=== PATIENT | male | born 1945 | race Caucasian/White ===

== ENCOUNTER → 2020-01-01 18:09 | Outpatient (CLI) | payer MEDICARE, SELFPAY ==
[2020-01-01 18:34] LABS: Basophils % 0.7 % (0.1-2.0); Eosinophils # 0.1 K/mm3 (0.0-0.4); Eosinophils % 1.9 % (0.1-12.0); Lymphocytes # 1.6 K/mm3 (0.7-4.5); Lymphocytes % 26.8 % (10-50); Mean Corpuscular HGB Conc 32.1 g/dL (31.8-35.4); Mean Corpuscular Hemoglobin 29.7 pg (27.0-31.2); Mean Corpuscular Volume 92.5 fl (80-94); Monocytes # 0.4 K/mm3 (0.1-1.0); Monocytes % 6.9 % (1.7-9.3); Neutrophils # 3.7 K/mm3 (1.8-7.8); Neutrophils % 63.7 % (37.0-80.0); Platelet Count 213 K/mm3 (142-424); Red Blood Count 5.73 M/mm3 (4.60-6.20); Red Cell Distribution Width 13.7 % (11.5-17.5); White Blood Count 5.9 K/mm3 (4.8-10.8)
[2020-01-01 18:57] LABS: Alanine Aminotransferase 40 U/L (12-78); Albumin Level 4.5 g/dl (3.5-5.0); Albumin/Globulin Ratio 1.6 (1.1-1.8); Alkaline Phosphatase 55 U/L (38-126); Anion Gap 13.1 mEq/L (5-15); Aspartate Amino Transferase 30 U/L (17-59); Bilirubin,Total 0.7 mg/dl (0.2-1.3); Blood Urea Nitrogen 22 mg/dl (9-20); Calcium 9.6 mg/dl (8.4-10.2); Carbon Dioxide 27 mmol/L (22.0-30.0); Chloride 104 mmol/L (98-107); Chol/HDL Ratio 2.7 (1-3.5); Cholesterol 208 mg/dl (140-200); Estimated Glomerular Filt Rate 73 ml/min (>60); GFR (African American) 89 ML/MIN (>60); Globulin 2.8 g/dL (1.3-3.2); Glucose 102 mg/dl (74-100); HDL Cholesterol 77 mg/dl (40-60); Potassium 5.1 mmoL/L (3.5-5.1); Sodium 139 mmol/L (136-145); Total Protein,Serum 7.3 g/dl (6.3-8.2); Triglycerides 93 mg/dl (30-150); VLDL Cholesterol 19 mg/dL (0-40)
[2020-01-01 19:28] LABS: Prostate Specific Ag Screen 1.2 ng/ml (0.0-4.0)
== END ==
PROVIDERS: Visit Provider Family Medicine
DX: R21 Rash and other nonspecific skin eruption (principal); I10 Essential (primary) hypertension; Z12.5 Encounter for screening for malignant neoplasm of prostate
CPT/HCPCS: 80053; 80061; 85025; G0103

== ENCOUNTER → 2021-12-22 08:45 | Outpatient (CLI) | payer MEDICARE, SELFPAY ==
[2021-12-22 14:53] LABS: Alanine Aminotransferase 39 U/L (12-78); Albumin Level 4.7 g/dl (3.5-5.0); Albumin/Globulin Ratio 1.7 (1.1-1.8); Alkaline Phosphatase 85 U/L (38-126); Anion Gap 16.2 mEq/L (5-15); Aspartate Amino Transferase 35 U/L (17-59); Bilirubin,Total 0.7 mg/dl (0.2-1.3); Blood Urea Nitrogen 28 mg/dl (9-20); Calcium 9.9 mg/dl (8.4-10.2); Carbon Dioxide 25 mmol/L (22.0-30.0); Chloride 102 mmol/L (98-107); Chol/HDL Ratio 2.6 (1-3.5); Cholesterol 187 mg/dl (140-200); Estimated Glomerular Filt Rate 65 ml/min (>60); GFR (African American) 79 ML/MIN (>60); Globulin 2.7 g/dL (1.3-3.2); Glucose 97 mg/dl (74-100); HDL Cholesterol 72 mg/dl (40-60); Potassium 4.2 mmoL/L (3.5-5.1); Sodium 139 mmol/L (136-145); Total Protein,Serum 7.4 g/dl (6.3-8.2); Triglycerides 109 mg/dl (30-150); VLDL Cholesterol 22 mg/dL (0-40)
[2021-12-22 14:54] LABS: Basophils # 0.1 K/mm3 (0-0.2); Basophils % 1.2 % (0.1-2.0); Eosinophils # 0.2 K/mm3 (0.0-0.4); Eosinophils % 3.6 % (0.1-12.0); Hematocrit 48.8 % (42.0-52.0); Hemoglobin 15.5 g/dL (14.1-18.0); Lymphocytes # 1.5 K/mm3 (0.7-4.5); Lymphocytes % 23.8 % (10-50); Mean Corpuscular HGB Conc 31.8 g/dL (31.8-35.4); Mean Corpuscular Hemoglobin 29.2 pg (27.0-31.2); Mean Corpuscular Volume 91.7 fl (80-94); Mean Platelet Volume 9.6 fl (7.4-10.4); Monocytes # 0.5 K/mm3 (0.1-1.0); Monocytes % 8.3 % (1.7-9.3); Platelet Count 270 K/mm3 (142-424); Red Blood Count 5.32 M/mm3 (4.60-6.20); Red Cell Distribution Width 13.3 % (11.5-17.5); White Blood Count 6.3 K/mm3 (4.8-10.8)
[2021-12-22 15:04] LABS: Direct LDL Cholesterol 82.95 mg/dL (100-129)
[2021-12-22 15:24] LABS: Prostate Specific Ag Screen 2.4 ng/ml (0.0-4.0); Thyroid Stimulating Hormone 1.59 uIU/mL (0.465-4.68)
== END ==
PROVIDERS: PCP Family Medicine; Visit Provider Family Medicine
DX: N40.0 Benign prostatic hyperplasia without lower urinary tract symptoms (principal); R59.9 Enlarged lymph nodes, unspecified; Z12.5 Encounter for screening for malignant neoplasm of prostate; E05.90 Thyrotoxicosis, unspecified without thyrotoxic crisis or storm; Z00.00 Encounter for general adult medical examination without abnormal findings
CPT/HCPCS: 80053; 80061; 84443; 85025; G0103

== ENCOUNTER → 2022-01-16 10:16 | Outpatient (CLI) | payer MEDICARE, SELFPAY ==
--- NOTE | 2022-01-16 10:16 | US_ITS ---
FINAL REPORT CLINICAL HISTORY: enlarged lymph node FINDINGS: NECK SOFT TISSUE ULTRASOUND The sonographic images were obtained of the soft tissues of the neck bilaterally. There is a 1.4 cm cystic mass in the left parotid. There is a 7 mm hypoechoic nodule in the right submandibular gland it has a nonspecific appearance. The left submandibular gland and right parotid gland have an unremarkable appearance. IMPRESSION: 14 mm cyst versus cystic mass in the left parotid gland. Nonspecific 7 mm hypoechoic nodule in the right submandibular gland. Follow-up ultrasound may be helpful. Reviewed, Interpreted and Dictated by Ghassan Grullon III, MD Transcribed by Lauro Victoria Authenticated and [facility]
== END ==
PROVIDERS: PCP Family Medicine; Visit Provider Student in an Organized Health Care Education/Training Program
DX: R59.0 Localized enlarged lymph nodes (principal)
CPT/HCPCS: 76536

== ENCOUNTER → 2022-01-18 07:44 | Outpatient (CLI) | payer MEDICARE, SELFPAY ==
--- NOTE | 2022-01-18 07:44 | US_ITS ---
FINAL REPORT CLINICAL HISTORY: Left parotid mass FINDINGS: Technique: Limited sonographic assessment confirms the presence of a 14 mm complex cystic lesion of left parotid gland. Standard written informed consent was obtained. The area of interest was prepped in a routine sterile fashion and locally anesthetized with 1% lidocaine. 2 passes with a 25-gauge needle were made toward the thickened wall of the cystic lesion. This was submitted for cytologic evaluation. Approximately 2 mL's of purulent material was then aspirated. Aspirate was submitted for culture and sensitivity. IMPRESSION: 1. Technically successful FNA and aspiration of left parotid lesion 2. Abscess is suspected. Please see cultures and sensitivity. Authenticated and ERN
== END ==
PROVIDERS: PCP Family Medicine; Visit Provider Student in an Organized Health Care Education/Training Program
DX: R59.0 Localized enlarged lymph nodes (principal); K11.8 Other diseases of salivary glands
CPT/HCPCS: 10005; 76536; 87070; 87205; 88173

== ENCOUNTER → 2022-09-04 23:59 | Outpatient (CLI) | payer MEDICARE, SELFPAY ==
[2022-09-04 18:43] LABS: Basophils # 0.1 K/mm3 (0-0.2); Basophils % 0.9 % (0.1-2.0); Eosinophils # 0.1 K/mm3 (0.0-0.4); Eosinophils % 2.3 % (0.1-12.0); Hematocrit 49.6 % (42.0-52.0); Hemoglobin 15.6 g/dL (14.1-18.0); Lymphocytes % 19.7 % (10-50); Mean Corpuscular HGB Conc 31.5 g/dL (31.8-35.4); Mean Corpuscular Hemoglobin 28.4 pg (27.0-31.2); Mean Corpuscular Volume 90.3 fl (80-94); Mean Platelet Volume 10.2 fl (7.4-10.4); Monocytes # 0.4 K/mm3 (0.1-1.0); Monocytes % 7.5 % (1.7-9.3); Neutrophils # 3.6 K/mm3 (1.8-7.8); Neutrophils % 69.6 % (37.0-80.0); Platelet Count 208 K/mm3 (142-424); Red Blood Count 5.49 M/mm3 (4.60-6.20); Red Cell Distribution Width 13.7 % (11.5-17.5); White Blood Count 5.2 K/mm3 (4.8-10.8)
[2022-09-04 18:44] LABS: Alanine Aminotransferase 30 U/L (12-78); Albumin Level 4.7 g/dl (3.5-5.0); Albumin/Globulin Ratio 1.9 (1.1-1.8); Alkaline Phosphatase 63 U/L (38-126); Anion Gap 10.2 mEq/L (5-15); Aspartate Amino Transferase 28 U/L (17-59); Bilirubin,Total 0.6 mg/dl (0.2-1.3); Blood Urea Nitrogen 21 mg/dl (9-20); Calcium 9.5 mg/dl (8.4-10.2); Carbon Dioxide 24 mmol/L (22.0-30.0); Chloride 109 mmol/L (98-107); Chol/HDL Ratio 2.3 (1-3.5); Cholesterol 178 mg/dl (140-200); Estimated Glomerular Filt Rate 73 ml/min (>60); GFR (African American) 88 ML/MIN (>60); Globulin 2.5 g/dL (1.3-3.2); Glucose 101 mg/dl (74-100); HDL Cholesterol 77 mg/dl (40-60); Potassium 4.2 mmoL/L (3.5-5.1); Sodium 139 mmol/L (136-145); Total Protein,Serum 7.2 g/dl (6.3-8.2); Triglycerides 64 mg/dl (30-150); VLDL Cholesterol 13 mg/dL (0-40)
[2022-09-04 18:55] LABS: Direct LDL Cholesterol 81.99 mg/dL (100-129)
[2022-09-04 19:18] LABS: Thyroid Stimulating Hormone 1.13 uIU/mL (0.465-4.68)
== END ==
PROVIDERS: PCP Family Medicine; Visit Provider Family Medicine
DX: Z01.818 Encounter for other preprocedural examination (principal); E78.5 Hyperlipidemia, unspecified; E07.9 Disorder of thyroid, unspecified
CPT/HCPCS: 80053; 80061; 84443; 85025

== ENCOUNTER 2023-11-12 10:22 | Outpatient (CLI) | payer MEDICARE, SELFPAY ==
[2023-11-12 19:47] LABS: Basophils # 0.1 K/mm3 (0-0.2); Basophils % 0.8 % (0.1-2.0); Eosinophils % 0.5 % (0.1-12.0); Hematocrit 51.9 % (42.0-52.0); Lymphocytes # 1.1 K/mm3 (0.7-4.5); Lymphocytes % 15.3 % (10-50); Mean Corpuscular HGB Conc 32.6 g/dL (31.8-35.4); Mean Corpuscular Hemoglobin 31.2 pg (27.0-31.2); Mean Corpuscular Volume 95.5 fl (80-94); Mean Platelet Volume 9.5 fl (7.4-10.4); Monocytes # 0.5 K/mm3 (0.1-1.0); Monocytes % 6.4 % (1.7-9.3); Neutrophils # 5.7 K/mm3 (1.8-7.8); Neutrophils % 77.1 % (37.0-80.0); Platelet Count 227 K/mm3 (142-424); Red Blood Count 5.44 M/mm3 (4.60-6.20); Red Cell Distribution Width 13.6 % (11.5-17.5); White Blood Count 7.4 K/mm3 (4.8-10.8)
[2023-11-12 20:11] LABS: Alanine Aminotransferase 32 U/L (12-78); Albumin Level 4.7 g/dl (3.5-5.0); Albumin/Globulin Ratio 1.7 (1.1-1.8); Alkaline Phosphatase 57 U/L (38-126); Anion Gap 7.9 mEq/L (5-15); Aspartate Amino Transferase 30 U/L (17-59); Blood Urea Nitrogen 22 mg/dl (9-20); Calcium 9.9 mg/dl (8.4-10.2); Carbon Dioxide 27 mmol/L (22.0-30.0); Chloride 106 mmol/L (98-107); Chol/HDL Ratio 3.1 (1-3.5); Cholesterol 200 mg/dl (140-200); Estimated Glomerular Filt Rate 59 ml/min (>60); GFR (African American) 71 ML/MIN (>60); Globulin 2.8 g/dL (1.3-3.2); Glucose 97 mg/dl (74-100); HDL Cholesterol 65 mg/dl (40-60); Potassium 3.9 mmoL/L (3.5-5.1); Sodium 137 mmol/L (136-145); Total Protein,Serum 7.5 g/dl (6.3-8.2); Triglycerides 98 mg/dl (30-150); VLDL Cholesterol 20 mg/dL (0-40)
[2023-11-12 20:21] LABS: Direct LDL Cholesterol 99.22 mg/dL (100-129)
[2023-11-12 20:42] LABS: Prostate Specific Ag Screen 1.8 ng/ml (0.0-4.0); Thyroid Stimulating Hormone 0.64 uIU/mL (0.465-4.68)
== END 2023-11-12 23:59 | disposition home or self-care (01) ==
LOC: LAB.DROPOF 11-13 10:23
PROVIDERS: PCP Family Medicine; Visit Provider Family Medicine
DX: I88.9 Nonspecific lymphadenitis, unspecified (principal); E78.5 Hyperlipidemia, unspecified; Z12.5 Encounter for screening for malignant neoplasm of prostate
CPT/HCPCS: 80053; 80061; 84443; 85025; G0103

== ENCOUNTER 2025-01-01 10:02 | Outpatient (CLI) | payer MEDICARE, SELFPAY ==
[2025-01-01 15:17] LABS: Hematocrit 49.2 % (42.0-52.0); Hemoglobin 16.1 g/dL (14.1-18.0); Immature Granulocytes % 0.3 %; Mean Corpuscular HGB Conc 32.7 g/dL (31.8-35.4); Mean Corpuscular Hemoglobin 29.0 pg (27.0-31.2); Mean Corpuscular Volume 88.5 fl (80-94); Nucleated Red Blood Cells % 0 %; Platelet Count 222 K/mm3 (142-424); Red Blood Count 5.56 M/mm3 (4.60-6.20); Red Cell Distribution Width-SD 41.1 fL; White Blood Count 7.1 K/mm3 (4.8-10.8)
[2025-01-01 15:42] LABS: Alanine Aminotransferase 26 U/L (12-78); Albumin Level 4.5 g/dl (3.5-5.0); Albumin/Globulin Ratio 1.8 (1.1-1.8); Alkaline Phosphatase 60 U/L (38-126); Anion Gap 10.7 mEq/L (5-15); Aspartate Amino Transferase 27 U/L (17-59); Bilirubin,Total 0.6 mg/dl (0.2-1.3); Blood Urea Nitrogen 25 mg/dl (9-20); Calcium 10.0 mg/dl (8.4-10.2); Carbon Dioxide 29 mmol/L (22.0-30.0); Chloride 103 mmol/L (98-107); Cholesterol 181 mg/dl (140-200); Creatinine,Serum 1.20 mg/dl (0.66-1.25); Estimated Glomerular Filt Rate 59 ml/min (>60); GFR (African American) 71 ML/MIN (>60); Globulin 2.5 g/dL (1.3-3.2); Glucose 98 mg/dl (74-100); HDL Cholesterol 56 mg/dl (40-60); Potassium 4.7 mmoL/L (3.5-5.1); Sodium 138 mmol/L (136-145); Total Protein,Serum 7.0 g/dl (6.3-8.2); Triglycerides 138 mg/dl (30-150)
--- OUTSIDE RECORDS SUMMARY | 2025-01-05 10:12 | XMS_ITS | Encounter Summary ---
Author Organization [place] [address] Care Team Providers Care Bun Panner Name Role Phone Jeffrey Ureña MD Primary Care Provider [phone] Encounter Details Date Type Department Care Team (Late st Contact Info) Description 06/12/2017 [facility] [place] [address] Armani Barrera MD [address] [place], [place] [address] [address] [place] [address] Enlarged prostate with lower urinary tract symptoms (LUTS) Social History Tobacco Use Types Packs/Day Years Used Date Smoking Tobacco: Never Smokeless Tobacco: Never Alcohol Use Standard Drinks/Week Comments No 0 (1 standard drink = 0.6 oz pur e alcohol) Sex and Gender Information Value Date Recorded Sex Assigned at Not on file Legal Sex Male 11:04 AM EDT Gender Identity Not on file Sexual Orientation Not on file documented as of this encounter Plan of Treatment Not on file documented as of this encounter Procedures Procedure Name Priority Date/Time Associated Diagnosis Comments PROSTATE SPECIFIC ANTIGEN (SCREENING) Today 06/12/2017 10:52 AM EDT Enlarged prostate with lower urinary tract symptoms (LUTS) documented in this encounter Results * PROSTATE SPECIFIC ANTIGEN (SCREENING) (06/12/2017 10:52 AM EDT) Total Psa 2.55 ng/mL 06/12/2017 7:[address] [facility] Blood VENOUS BLOOD / Unknown 06/12/2017 10:52 AM EDT 06/12/2017 3:00 PM EDT Narrative [facility] - 06/12/2017 7:29 PM EDT 2009 [facility] Best Practice Statement Guidelines-Age Adjusted Reference Intervals: Age Range Whites Americans Americans 40-49 years 0-2.5 ng/mL 0-2.0 ng/mL 0-2.0 ng/mL 50-59 years 0-3.5 ng/mL 0-4.0 ng/mL 0-3.0 ng/mL 60-69 years 0-4.5 ng/mL 0-4.5 ng/mL 0-4.0 ng/mL 70-79 years 0-6.5 ng/mL 0-5.5 ng/mL 0-5.0 ng/mL [facility] uses the [employer] Total PSA assay, which is approved as an aid in detecting prostate cancer when used in conjunction with digital rectal exam in men 50 years or older and also as an adjunctive test to aid in the management of prostate cancer patients. Prostatic biopsy is required for the diagnosis of cancer. Values obtained with different assay methods should not be used interchangeably. Consider the above as guidelines only. The risk of prostate cancer is a continuum across a range of PSA levels, with increasing risk as the PSA increases. us Armani Barrera MD CHEMISTRY ORDERABLES Final R esult [facility] [address] [place], [place] [id number] documented in this encounter Visit Diagnoses Diagnosis Enlarged prostate with lower urinary tract symptoms (LUTS) Hypertrophy of prostate with urinary obstruction and other lower urinary tract symptoms (LUTS) documented in this encounter Additional Health Concerns Assessment Noted Time A fall risk assessment has been complete d for the patient 09/21/2016 11:01 AM EDT documented as of this encounter Care Teams Bun Panner Relationship Specialty Start Date End Date Jeffrey Ureña MD PCP - General Family Medicine 09/06/16 documented as of this encounter
--- OUTSIDE RECORDS SUMMARY | 2025-01-05 10:12 | XMS_ITS | Clinical Summary ---
Author Organization [facility] Address [address] [facility] [place] [address] Phone Care Team Providers Care Refrigerator Repair Technician Name Role Phone Jeffrey Ureña MD Primary Care Provider [phone] Allergies No known active allergies Medications lisinopril (PRINIVIL;ZESTRI L) 10 mg Oral Tablet Take 20 mg by mouth daily. Active finasteride (PROSCAR) 5 mg Oral Tablet Take 5 mg by mouth daily. Active losartan (COZAAR) 100 mg Oral Tablet Take 100 mg by mouth daily. Active amLODIPine (NORVASC) 10 mg Oral Tablet Take 10 mg by mouth daily. Active aspirin 325 mg Oral Tablet, Delayed Release (E.C.) Take 1 Tablet by mouth every 12 hours. 60 Tablet 09/26/2022 3:54 PM EDT 09/26/2022 Active tiZANidine (ZANAFLEX) 2 mg Oral TabletIndication s:Status post right knee replacement Take 1 Tablet by mouth every 8 hours as needed. 60 Tablet 10/11/2022 Active oxyCODONE (ROXICODONE) 5 mg Oral TabletIndication s:Status post right knee replacement Take 1-2 tablets by mouth every 8 hours as needed for pain 40 Tablet 10/11/2022 Active traMADoL (ULTRAM) 50 mg Oral TabletIndication s:Status post right knee replacement Take 1 Tablet by mouth every 8 hours as needed for Pain. 40 Tablet 10/11/2022 Active acetaminophen (TYLENOL) 500 mg Oral TabletIndication s:Status post right knee replacement Take 2 Tablets by mouth every 8 hours as needed for Pain. 60 Tablet 11/07/2022 Active naproxen sodium (ALEVE) 220 mg Oral Tablet Take 220 mg by mouth 2 times daily (with meals). Active Active Problems Problem Noted Date Diagnosed Date Right knee pain 06/20/2023 Status post left knee replacement 06/20/2023 Left knee pain 04/19/2022 S/P laparoscopic cholecystectomy 09/22/2016 Essential hypertension 09/06/2016 Benign prostatic hyperplasia 09/06/2016 Resolved Problems Problem Noted Date Diagnosed Date Resolved Date Acute acalculous cholecystitis 09/06/2016 09/22/2016 Immunizations Immunization Administration Dates Next Due Tdap 09/06/2017 Surgical History Surgery Date Site/Laterality Comments PROSTATE BIOPSY CHOLECYSTECTOMY, LAPAROSCOPIC 09/07/2016 N/A LAPAROSCOPIC CHOLECYSTECTOMY; Surgeon: Slade Guidry DO; Location: [facility]; Service: General JOINT REPLACEMENT 09/26/2022 Knee/Left LEFT TOTAL KNEE REPLACEMENT; Surgeon: Charanjit Taveras MD; Location: [facility]; Service: Orthopedics Medical devices from this surgery are in the Medical Devices section. Medical History Medical History Date Comments Hypertension Enlarged prostate Hyperlipidemia Prostate disorder Arthritis Family History Medical History Relation Name Comments Cancer Brother 1 prostate Cancer Brother 2 thyroid Heart Disease Father Heart Disease Mother Anesth Problems Neg Hx Relation Name Status Comments Brother 1 Alive Brother 2 Father Mother Social History Tobacco Use Types Packs/Day Years Used Date Smoking Tobacco: Never Smokeless Tobacco: Never Tobacco Cessation:Counseling Given: Not Answered Alcohol Use Standard Drinks/Week Comments No 0 (1 standard drink = 0.6 oz pur e alcohol) Sex and Gender Information Value Date Recorded Sex Assigned at Not on file Legal Sex Male 11:04 AM EDT Gender Identity Not on file Sexual Orientation Not on file Last Filed Vital Signs Vital Sign Reading Time Taken Comments Blood Pressure 128/82 09/26/2022 6:10 PM EDT Pulse 78 09/26/2022 6:10 PM EDT Temperature 36.2 C (97.2 F) 09/26/2022 4:59 PM EDT Respiratory Rate 18 09/26/2022 6:10 PM EDT Oxygen Saturation 99% 09/26/2022 6:10 PM EDT Inhaled Oxygen Concentration - - Weight 73 kg (161 lb) 07/29/2024 11:45 AM EDT Height 162.6 cm (5' 4 ) 07/29/2024 11:45 AM EDT Body Mass Index 27.64 07/29/2024 11:45 AM EDT Plan of Treatment Health Maintenance Due Date Last Done Comments Wellness Exam Medicare 05/12/1948 Hepatitis C Screening 05/12/1965 Zoster (1 of 2) 05/12/1997 Pneumococcal Vaccine 50+ (2 of 2 - PCV) 12/31/2020 01/01/2020 RSV or 60+ (1 - 1-dose 75+ series) 05/12/2022 COVID-19 Vaccine (4 - 2024-2 6 season) 2024 12/24/2020, 05/06/2020, 04/06/2020 Influenza Vaccine (#1) 2024 , 12/02/2019, 12/26/2011 DTaP/TDaP/Td (3 - Td or Tdap) 09/07/2027, 10/08/2009 Hepatitis B Vaccine Aged Out No longe r eligible based on patient's age to complete this topic Meningococcal B Vaccine Aged Out No l onger eligible based on patient's age to complete this topic Medical Devices Implanted Type Area Optical Store Manager Device Identifier Shelf Expiration Date Model / Serial / Lot Patlr [id number] Triath Tritan Mtl Asym Kn - [id number] Implanted:Qty: 1 on 09/26/2022 by Charanjit Taveras MD at [facility] Left: Knee ERASMO:ORTHOPED ICS [id number] 09/04/2027 5552-L-350 / / [id number] Comp Fem Sz2 Triath Lt Kn Cr Ncem Periapt Ctd Bead - [id number] Implanted:Qty: 1 on 09/26/2022 by Charanjit Taveras MD at [facility] Left: Knee ERASMO:ORTHOPED ICS [id number] 08/01/2027 5517-F-201 / / [id number] Ins Tib 3 10mm Kn X3 Cs Brng Trthln - [id number] Implanted:Qty: 1 on 09/26/2022 by Charanjit Taveras MD at [facility] Left: Knee ERASMO:ORTHOPED ICS [id number] 08/29/2027 5531-G-[id number] -[id number] / / [id number] Baseplate Tib Sz3 Total Stabilized Revisn Triath Tritan - [id number] Implanted:Qty: 1 on 09/26/2022 by Charanjit Taveras MD at [facility] Left: Knee ERASMO:ORTHOPED ICS [id number] 07/24/2027 5536-B-[id number] / / [id number] Insurance MEDICARE PPO MR Advance Directives For more information, please contact: [phone] * Full Code (Latest Code Status on File) Date Activated Date Inactivated Comments 09/06/2016 7:35 PM 09/07/2016 10:25 PM Care Teams Refrigerator Repair Technician Relationship Specialty Start Date End Date Jeffrey Ureña MD PCP - General Family Medicine 09/06/16
== END 2025-01-01 23:59 ==
LOC: LAB.DROPOF 01-05 10:03
PROVIDERS: PCP Family Medicine; Visit Provider Family Medicine
DX: I10 Essential (primary) hypertension (principal)
CPT/HCPCS: 80053; 80061; 85025